=== PATIENT | female | born 1950 | race Hispanic/Latino ===

== ENCOUNTER 2020-03-29 16:02 | Inpatient (IN) | payer MEDICARE, OTHER ==
[~2020-03-29] VITALS: Ht 157.5 cm; Wt 83.9 kg
[2020-03-29] MEDS ORDERED: ASPIRIN 81 MG CHEW TAB PO ONE (16:30)
[2020-03-29 17:13] LABS: BASOPHILS % 0.5 % (0.0-1.0); HEMATOCRIT 43.5 % (34.2-44.1); HEMOGLOBIN 13.8 g/dL (12.0-16.0); LYMPHOCYTES # (AUTO) 1.5 (1.0-3.2); LYMPHOCYTES % 39.6 % (18.0-39.1); MEAN CORPUSCULAR HEMOGLOBIN 29.6 pg (28-32); MEAN CORPUSCULAR HGB CONC 31.7 g/dL (31-35); MEAN CORPUSCULAR VOLUME 93.3 fL (81-99); MONOCYTES # (AUTO) 0.6 (0.2-0.8); MONOCYTES % 15.2 % (4.4-11.3); NEUTROPHILS # (AUTO) 1.7 (2.1-6.9); NEUTROPHILS % 44.7 % (38.7-80.0); PLATELET COUNT 203 x10e3/uL (140-360); RED BLOOD COUNT 4.66 x10e6/uL (3.6-5.1); RED CELL DISTRIBUTION WIDTH 14.1 % (11.7-14.4)
[2020-03-29 17:20] LABS: INR 0.91; PROTHROMBIN TIME 12.7 seconds (11.9-14.5)
[2020-03-29 17:21] LABS: PARTIAL THROMBOPLASTIN TIME 30.9 seconds (23.8-35.5)
[2020-03-29 17:29] LABS: ALANINE AMINOTRANSFERASE 13 IU/L (0-55); ALBUMIN 3.9 g/dL (3.5-5.0); ALBUMIN/GLOBULIN RATIO 1.4 (0.8-2.0); ALKALINE PHOSPHATASE 59 IU/L (40-150); ANION GAP 14.7 mmol/L (8-16); BLOOD UREA NITROGEN 18 mg/dL (7-26); BUN/CREATININE RATIO 23 (6-25); CALCIUM 9.1 mg/dL (8.4-10.2); CARBON DIOXIDE 23 mmol/L (22-29); CHLORIDE 107 mmol/L (98-107); CREATINE KINASE 18 IU/L (29-168); CREATININE, SERUM 0.78 mg/dL (0.57-1.11); EST GLOMERULAR FILTRATION RATE > 60 ML/MIN (60-); GLUCOSE 88 mg/dL (74-118); POTASSIUM 3.7 mmol/L (3.5-5.1); SODIUM 141 mmol/L (136-145)
[2020-03-29 20:24] VITALS: BP 121/82
[2020-03-29] MEDS: ONDANSETRON HCL INJ 2MG/ML 2ML 2 MG/ML VIAL IV PRN (20:25)
[2020-03-29] MEDS: MORPHINE SULFATE INJ 4 MG/ML INJ 1ML IV PRN (20:25)
[2020-03-29 20:30] VITALS: BP 121/82
[2020-03-29] MEDS ORDERED: ERGOCAL62.5 MCG (22:08)
[2020-03-29] MEDS ORDERED: PREDNISONE5 MG PO (22:08)
[2020-03-29] MEDS ORDERED: METHOTREXATE2.5 MG PO (22:08)
[2020-03-29] MEDS ORDERED: ATORVASTATIN CA20 MG PO (22:08)
[2020-03-29] MEDS ORDERED: AMLODIPINE BESY10 MG PO (22:08)
[2020-03-29] MEDS ORDERED: NEPHRO-VITE TABL1 EA PO (22:08)
[2020-03-29] MEDS ORDERED: TIZANIDINE HCL4 MG PO (22:08)
[2020-03-29] MEDS ORDERED: IOPAMIDOL 370 MG/ML 200 ML INFUS..BTL INJ ONE (23:17)
[2020-03-29] MEDS ORDERED: SODIUM CHLORIDE 0.9% 50ML 0 ML ONE (23:18)
[2020-03-29 23:53] VITALS: BP 124/70
[2020-03-29] MEDS ORDERED: SODIUM CHLORIDE 0.9% 100 ML ONE (23:57)
[2020-03-30] VITALS (7 sets, daily range): BP systolic 122–147; BP diastolic 66–77
[2020-03-30 02:21] LABS: CREATINE KINASE 20 IU/L (29-168)
[2020-03-30] MEDS: ONDANSETRON HCL INJ 2MG/ML 2ML 2 MG/ML VIAL IV PRN (03:27)
[2020-03-30] MEDS: MORPHINE SULFATE INJ 4 MG/ML INJ 1ML IV PRN ×3 (03:27→15:11)
[2020-03-30 07:14] LABS: CREATINE KINASE 22 IU/L (29-168)
[2020-03-30 07:57] LABS: CHOL/HDL RATIO 2.9 (3.0-3.6)
[2020-03-30] MEDS: PREDNISONE 5 MG TAB PO SCH (08:38)
[2020-03-30] MEDS: ATORVASTATIN 40 MG TAB PO SCH (08:38)
[2020-03-30] MEDS: FOLIC ACID 1 MG TAB PO SCH (08:38)
[2020-03-30] MEDS: AMLODIPINE BESYLATE 10 MG TAB PO SCH (08:38)
[2020-03-30] MEDS: ENOXAPARIN SOD INJ 40 MG/0.4 ML SYR SC SCH (17:06)
[2020-03-30] MEDS: GUAIFENESIN/CODEINE 10 ML CUP PO PRN (20:27)
[2020-03-30] MEDS: TIZANIDINE HCL 4 MG TAB PO SCH (20:28)
[2020-03-31] VITALS (7 sets, daily range): BP systolic 101–121; BP diastolic 57–68
[2020-03-31] MEDS: SODIUM CHLORIDE 0.9% 1000ML 1,000 ML IV SCH ×2 (00:34→20:15)
[2020-03-31] MEDS: ONDANSETRON HCL INJ 2MG/ML 2ML 2 MG/ML VIAL IV PRN ×2 (04:25→14:13)
[2020-03-31] MEDS: MORPHINE SULFATE INJ 4 MG/ML INJ 1ML IV PRN ×3 (04:25→20:53)
[2020-03-31] MEDS: ATORVASTATIN 40 MG TAB PO SCH (08:28)
[2020-03-31] MEDS: PREDNISONE 5 MG TAB PO SCH (08:28)
[2020-03-31] MEDS: AMLODIPINE BESYLATE 10 MG TAB PO SCH (08:28)
[2020-03-31] MEDS: FOLIC ACID 1 MG TAB PO SCH (08:28)
[2020-03-31] MEDS: GUAIFENESIN/CODEINE 10 ML CUP PO PRN ×2 (08:53→20:44)
[2020-03-31] MEDS: ENOXAPARIN SOD INJ 40 MG/0.4 ML SYR SC SCH (17:00)
[2020-03-31] MEDS: TIZANIDINE HCL 4 MG TAB PO SCH (20:15)
[2020-03-31] MEDS ORDERED: AZITHROMYCIN 250 MG TAB PO SCH (20:45)
[2020-03-31] MEDS ORDERED: ACETAMINOPHEN/CODEINE 300MG - 30MG TAB PO PRN (20:45)
[2020-03-31] MEDS ORDERED: CEFTRIAXONE SOD 1 GM VIAL IV SCH (20:45)
[2020-03-31] MEDS ORDERED: CEFTRIAXONE SOD 1 GM/NS 50 ML 50 ML IV SCH (21:00)
[2020-03-31] MEDS: BENZONATATE 100 MG CAP PO SCH (21:41)
[2020-04-01] VITALS: BP 96/76
[2020-04-01] MEDS: ALBUTEROL SULFATE HFA 8GM INHALATION AEROSOL INH SCH ×2 (01:00→07:00)
[2020-04-01 04:00] VITALS: BP 113/77
[2020-04-01 05:09] LABS: HEMOGLOBIN 12.1 g/dL (12.0-16.0); LYMPHOCYTES # (AUTO) 1.8 (1.0-3.2); LYMPHOCYTES % 57.9 % (18.0-39.1); MEAN CORPUSCULAR HEMOGLOBIN 29.5 pg (28-32); MEAN CORPUSCULAR HGB CONC 32.7 g/dL (31-35); MEAN CORPUSCULAR VOLUME 90.2 fL (81-99); MONOCYTES # (AUTO) 0.3 (0.2-0.8); MONOCYTES % 9.8 % (4.4-11.3); NEUTROPHILS % 32.3 % (38.7-80.0); PLATELET COUNT 154 x10e3/uL (140-360); RED CELL DISTRIBUTION WIDTH 13.7 % (11.7-14.4)
[2020-04-01] MEDS: MORPHINE SULFATE INJ 4 MG/ML INJ 1ML IV PRN (05:28)
[2020-04-01] MEDS: GUAIFENESIN/CODEINE 10 ML CUP PO PRN (05:28)
[2020-04-01 05:38] LABS: ALANINE AMINOTRANSFERASE 13 IU/L (0-55); ALBUMIN 3.2 g/dL (3.5-5.0); ALBUMIN/GLOBULIN RATIO 1.3 (0.8-2.0); ALKALINE PHOSPHATASE 49 IU/L (40-150); ANION GAP 11.8 mmol/L (8-16); BLOOD UREA NITROGEN 23 mg/dL (7-26); BUN/CREATININE RATIO 35 (6-25); CALCIUM 8.6 mg/dL (8.4-10.2); CARBON DIOXIDE 25 mmol/L (22-29); CHLORIDE 104 mmol/L (98-107); CREATININE, SERUM 0.65 mg/dL (0.57-1.11); EST GLOMERULAR FILTRATION RATE > 60 ML/MIN (60-); GLUCOSE 95 mg/dL (74-118); POTASSIUM 3.8 mmol/L (3.5-5.1); SODIUM 137 mmol/L (136-145)
[2020-04-01 07:22] VITALS: BP 113/77
[2020-04-01 07:24] VITALS: BP 128/73
[2020-04-01] MEDS ORDERED: METHOTREXATE SOD 2.5 MG TAB PO SCH (08:00)
[2020-04-01] MEDS ORDERED: CEFTRIAXONE SOD 1 GM/NS 50 ML 50 ML IV SCH (08:00)
[2020-04-01] MEDS: PREDNISONE 5 MG TAB PO SCH (08:08)
[2020-04-01] MEDS: BENZONATATE 100 MG CAP PO SCH ×2 (08:08→17:15)
[2020-04-01] MEDS: ATORVASTATIN 40 MG TAB PO SCH (08:09)
[2020-04-01] MEDS: AMLODIPINE BESYLATE 10 MG TAB PO SCH (08:09)
[2020-04-01] MEDS: FOLIC ACID 1 MG TAB PO SCH (08:09)
[2020-04-01] MEDS ORDERED: ASPIRIN81 MG PO (08:55)
[2020-04-01] MEDS ORDERED: AZITHROMYCIN 250 MG TAB PO SCH (09:00)
[2020-04-01] MEDS ORDERED: ASPIRIN 81 MG ENTERIC COATED PO SCH (09:00)
[2020-04-01 12:09] VITALS: BP 121/79
[2020-04-01 16:00] VITALS: BP 127/72
[2020-04-01] MEDS: SODIUM CHLORIDE 0.9% 1000ML 1,000 ML IV SCH (16:00)
[2020-04-01] MEDS: ENOXAPARIN SOD INJ 40 MG/0.4 ML SYR SC SCH (17:15)
[2020-04-03] MEDS ORDERED: ERGOCALCIFEROL 50,000 UNIT CAP PO SCH (09:00)
== END 2020-04-01 19:00 | disposition home or self-care (01) | DRG 177 ==
LOC: ER 16:24 → ERHOLD 18:26 → MED/SURG 20:11 → IMCU 03-31 06:26 → OBSVTOIN 03-31 08:24
PROVIDERS: ADMIT Internal Medicine; ATTEND Internal Medicine
DX: U07.1 COVID-19 (principal); J12.89 Other viral pneumonia; K80.10 Calculus of gallbladder with chronic cholecystitis without obstruction; I10 Essential (primary) hypertension; I25.2 Old myocardial infarction; Z95.1 Presence of aortocoronary bypass graft; E78.5 Hyperlipidemia, unspecified; I25.10 Atherosclerotic heart disease of native coronary artery without angina pectoris; M19.90 Unspecified osteoarthritis, unspecified site; R07.9 Chest pain, unspecified; M06.9 Rheumatoid arthritis, unspecified
CPT/HCPCS: 36415; 71045; 71275; 76705; 78227; 80053; 80061; 82550; 82553; 83735; 83880; 84484; 85025; 85610; 85730; 93005; 99284; A9537; G0378; J0696; J1650; J2270; J2405; J7030; J7050; J7512; J8610; Q9967; U0002